=== PATIENT | male | born 1990 | race African-American/Black ===

== ENCOUNTER 2017-01-27 11:34 | Inpatient (IN) | payer OTHER ==
[~2017-01-27] VITALS: Ht 157.5 cm; Wt 76.0 kg
[2017-01-27 13:03] LABS: MEAN CORPUSCULAR HEMOGLOBIN 32.9 pg (27.0-33.0); MEAN CORPUSCULAR HGB CONC 34.5 g/dl (32.0-36.5); MEAN CORPUSCULAR VOLUME 95.3 fl (80.0-96.0); PLATELET COUNT, AUTOMATED 314 10^3/uL (150-450); RED CELL DISTRIBUTION WIDTH 11.8 % (11.5-14.5); WHITE BLOOD COUNT 8.7 10^3/uL (4.0-10.0)
[2017-01-27 13:35] LABS: METHADONE URINE NEGATIVE (NEGATIVE)
[2017-01-27 13:51] LABS: ALBUMIN 4.2 GM/DL (3.2-5.2); ALBUMIN/GLOBULIN RATIO 1.45 (1.00-1.93); ALKALINE PHOSPHATASE 49 U/L (45-117); ALT/SGPT 30 U/L (12-78); ANION GAP 9 MEQ/L (8-16); AST/SGOT 23 U/L (7-37); BILIRUBIN,DIRECT 0.3 MG/DL (0.0-0.2); BILIRUBIN,TOTAL 1.5 MG/DL (0.2-1.0); BLOOD UREA NITROGEN 12 MG/DL (7-18); CALCIUM LEVEL 9.1 MG/DL (8.5-10.1); CARBON DIOXIDE LEVEL 27 MEQ/L (21-32); CHLORIDE LEVEL 103 MEQ/L (98-107); GLOMERULAR FILTRATION RATE > 60.0 (>60); GLUCOSE, FASTING 81 MG/DL (70-105); POTASSIUM SERUM 3.7 MEQ/L (3.5-5.1); SODIUM LEVEL 139 MEQ/L (136-145); TOTAL PROTEIN 7.1 GM/DL (6.4-8.2)
[2017-01-27] MEDS ORDERED: traZODone 50 MG TAB PO PRN (14:45)
[2017-01-27] MEDS ORDERED: MAALOX 30 ML SUSP *UDC PO PRN (14:45)
[2017-01-27] MEDS ORDERED: ACETAMINOPHEN TAB 650MG DOSE (2X325MG) PO PRN (14:45)
[2017-01-27] MEDS ORDERED: MOM 30ML SUSPENSION UDC PO PRN (14:45)
[2017-01-27 16:05] VITALS: BP 134/59
[2017-01-27] MEDS: ESCITALOPRAM OXALATE 10 MG TAB (LEXAPRO) PO SCH (17:58)
[2017-01-28 06:45] VITALS: BP 140/75
--- NOTE | 2017-01-28 09:00 | HPEPDOC ---
[facility] Medical History & Physical Date of Admission Jan 27, 2017 History and Physical PCP: [facility] ATTENDING: Dr. Sahil Gold HPI: 26yoM admitted to [facility] for Depressive disorder, being medically examined today. No acute medical complaints today. Denies any fevers, chills, weakness, fatigue, VARMA, CP, SOB, cough, palpitations, abdominal pain, N/V/D or changes in bowel or bladder habits. PMHx: Anxiety Depression Self-mutilation Strube SI PSHX: Denies SOCHX: Resides in: [place], from [place]. Marital Status: Single Kids: None Employment: Active duty Tobacco use: Denies ETOH: Denies Illicit Drugs: History of marijuana, last 7 years ago IV Drug Use: Denies Tattoos done unprofessionally: Denies FAMHX: Mother: Alive, hypertension Father: Unknown Siblings: Alive, well Children: None Unexpected deaths due to medical reasons: None. ROS: As noted in HPI, otherwise 11pt ROS of systems reviewed and unremarkable. PE: GEN: 26yoM, appears stated age. Well-nourished, well developed. No acute distress. Alert and oriented x 3. Pleasant, interactive. HEENT: Normocephalic, atraumatic. Pupils are equal, round, and reactive to light. Extraocular movements are intact. No nystagmus appreciated. Sclera are nonicteric. Conjunctiva without injection. Nose midline. Nasal turbinates without bogginess. EACs both patent BL. TMs both visualized and sauer with good cone of light, no bulging or erythema. No facial asymmetry. Moist mucous membranes. Dentition fair. Pharynx pink and moist, no cobblestoning. Neck supple , trachea midline. No lymphadenopathy or thyromegaly appreciated. CHEST: Regular rate and rhythm, +S1, +S2 LUNGS: Clear to auscultation bilaterally. No wheezes, rales, or rhonchi. Breathing appears symmetric and easy. Patient is speaking in full sentences. No accessory muscle use. ABD: Round, soft, non-tender, non-distended. +Bowel sounds throughout. No rebound or guarding. No costovertebral angle tenderness. EXT: Pulses 2+ bilaterally dorsalis pedis and radial. No lower extremity edema appreciated. SKIN: [place], dry, warm. Capillary refill <2sec. No rashes. NEURO: Alert and oriented x 3. Cranial nerves III-XII are intact. No focal deficits appreciated. EKG: pending. A&P: 26yoM admitted to [facility] for Depressive disorder 1. Psych. Plan per Psychiatry. Obtain baseline EKG to assure the safety of psychiatric medications as they can prolong the QT interval. 2. Follow up with PCP on discharge. 3. Staff member Ed present throughout exam. Vital Signs Vital Signs Date Time Temp Pulse Resp B/P (MAP) Pulse Ox O2 Delivery O2 Flow Rate FiO2 01/28/17 06:45 99.0 67 14 140/75 (96) Room Air 01/27/17 16:05 99 Laboratory Data Labs 24H Laboratory Tests 2 01/27/17 12:45: Nucleated Red Blood Cells % (auto) 0.0, Anion Gap 9, Glomerular Filtration Rate > 60.0, Calcium Level 9.1, Aspartate Amino Transf (AST/SGOT) 23, Alanine Aminotransferase (ALT/SGPT) 30, Alkaline Phosphatase 49, Total Bilirubin 1.5H, Direct Bilirubin 0.3H, Total Protein 7.1, Albumin 4.2, Albumin/Globulin Ratio 1.45, Thyroid Stimulating Hormone (TSH) 0.984, Salicylates Level < 1.7L, Urine Amphetamines Screen NEGATIVE, Urine Benzodiazepines Screen NEGATIVE, Urine Opiates Screen NEGATIVE, Urine Methadone Screen NEGATIVE, Acetaminophen Level < 2.0L, Urine Barbiturates Screen NEGATIVE, Urine Phencyclidine Screen NEGATIVE, Urine Cocaine Metabolite Screen NEGATIVE, Urine Cannabinoids Screen NEGATIVE, Ethyl Alcohol Level < 0.003 CBC/BMP Laboratory Tests 01/27/17 12:45 Red Blood Count 4.47, Mean Corpuscular Volume 95.3, Mean Corpuscular Hemoglobin 32.9, Mean Corpuscular Hemoglobin Concent 34.5, Red Cell Distribution Width 11.8 Home Medications No Active Prescriptions or Reported Meds Allergies Coded Allergies: No Known Allergies (Unverified , 01/27/17) Di Obando Jan 28, 2017 09:00
[2017-01-28] MEDS: ESCITALOPRAM OXALATE 10 MG TAB (LEXAPRO) PO SCH (09:31)
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
[2017-01-28] MEDS: VENLAFAXINE **XR** 37.5 MG CAPSULE PO SCH (11:40)
--- NOTE | 2017-01-28 14:04 | ECGEPIP ---
Stationary ECG Study [facility] Test Date: 2017-01-28 Pat Name: MADELEINE ZAMORA Department: Room: [place] [address] Gender: M Stereotyper: MAGGIE : 1990 Requested By: Di Obando Order Number: [id number] Reading MD: Jovana Lee Measurements Intervals [place] Rate: 57 P: 59 [place]: 167 QRS: 85 QRSD: 88 T: 32 QT: 392 QTc: 384 Interpretive Statements SINUS BRADYCARDIA WITH SINUS ARRHYTHMIA ST ELEVATION, PROBABLY EARLY REPOLARIZATION CLINICAL GRICELDA NONSPECIFIC ST & T-WAVE ABNORMALITY Electronically Signed On 01-28-2017 14:03:52 EST by Jovana Lee
[2017-01-28 18:00] VITALS: BP 129/70
[2017-01-28] MEDS: traZODone 100 MG TAB PO SCH (22:06)
[2017-01-29 06:42] VITALS: BP 137/66
[2017-01-29] MEDS: VENLAFAXINE **XR** 37.5 MG CAPSULE PO SCH ×2 (09:00→12:02)
[2017-01-29] MEDS: ESCITALOPRAM OXALATE 10 MG TAB (LEXAPRO) PO SCH (09:16)
--- NOTE | 2017-01-29 15:13 | MHIPN ---
DATE: 01/29/2017 HISTORY: A 26-year-old male, active-duty soldier, admitted for depression and suicidal ideation. Patient was searching for places in his room to hang himself. MEDICATIONS: - Effexor XR 37.5 mg by mouth every morning - Lexapro 20 mg by mouth every morning - trazodone 100 mg by mouth at bedtime SUBJECTIVE: "I'm afraid of the side effects of the medication." OBJECTIVE: Patient refused to take the Effexor this morning. I discussed this issue with the patient and told him that he was taking the Lexapro with minimal results, and that I was trying to get this new medication to build up to see if it was effective. Patient agreed to take it. There is no evidence of psychotic symptoms. No auditory or visual hallucinations or delusions. MENTAL STATUS EXAMINATION: Patient dressed in [facility]. Patient is cooperative. Has fair eye contact. His speech is slow and monotone. Mood is depressed and anxious. Affect is restricted. No delusions. No hallucinations. Memory is fair. Patient is fully oriented. The patient is able to contract for safety during the interview. Insight and judgment are limited. ASSESSMENT: 1. Depression. 2. Suicidal ideation. PLAN: 1. Continue with Effexor XR 37.5 mg by mouth every morning. 2. Continue Lexapro 20 mg by mouth every morning. Will taper and discontinue this medication if Effexor is effective. 3. Continue trazodone 100 mg by mouth at bedtime.
[2017-01-29 18:00] VITALS: BP 130/81
[2017-01-29] MEDS: traZODone 100 MG TAB PO SCH (21:40)
[2017-01-30 06:45] VITALS: BP 143/69
[2017-01-30] MEDS: ESCITALOPRAM OXALATE 10 MG TAB (LEXAPRO) PO SCH (09:53)
--- NOTE | 2017-01-30 15:59 | MHIPN ---
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 The patient was searching for places in his room to hang himself. MEDICATIONS: - Effexor XR 37.5 mg by mouth in the morning - Lexapro 20 mg by mouth in the morning - trazodone 100 mg by mouth at night SUBJECTIVE: "I could sleep a little better." OBJECTIVE: The patient continues depressed with psychomotor retardation, sad, restricted facial expressions. Interacts very little with other patients and staff. Has tendency to isolate. There is no evidence of psychotic symptoms. No auditory or visual hallucinations or delusions. The patient is able to contract for safety while in the hospital. MENTAL STATUS EXAMINATION: The patient is dressed in [facility]. The patient is cooperative. Has fair eye contact. Speech is slow and monotone. Mood is depressed and anxious. Affect is restricted. No delusions or hallucinations. Memory, attention and concentration are fair. The patient is able to contract for safety while in the hospital. Insight and judgment are limited. ASSESSMENT: 1. Depression. 2. Suicidal ideation. PLAN: 1. Increase Effexor XR to 75 mg by mouth in the morning. 2. Continue Lexapro 20 mg by mouth in the morning. We will taper this medication and discontinue it as Effexor is increased. 3. Increase trazodone to 150mg by mouth in the morning.
[2017-01-30] MEDS: traZODone 50 MG TAB PO SCH (21:00)
[2017-01-30 22:08] VITALS: BP 128/72
[2017-01-31 06:18] VITALS: BP 128/79
[2017-01-31] MEDS: VENLAFAXINE **XR** 75MG CAPSULE PO SCH (08:46)
[2017-01-31] MEDS: ESCITALOPRAM OXALATE 10 MG TAB (LEXAPRO) PO SCH (08:46)
--- NOTE | 2017-01-31 15:34 | MHIPN ---
DATE: 01/31/2017 HISTORY: A 26-year-old male, active-duty soldier, admitted for depression and suicidal ideation. Patient was searching for places in his room to hang himself. MEDICATIONS: 1. Effexor XR 75 mg by mouth every morning. 2. Lexapro 20 mg by mouth every morning. 3. Trazodone 100 mg by mouth at bedtime. SUBJECTIVE: "I did not take the medication for sleep last night." OBJECTIVE: Patient states that could not sleep last night. Was waking up constantly; however, he said that he refused the trazodone at bedtime. I discussed the treatment with the patient and the importance of being compliant with the medication. No evidence of side effects. Patient continues depressed with sad, restricted facial expression and psychomotor retardation. No evidence of side effect from the medication. No delusions. No hallucinations. MENTAL STATUS EXAMINATION: Patient dressed in [facility]. Patient is cooperative. Has fair eye contact. Speech is slow and monotone. Mood is depressed and anxious. Affect is restricted, sad. No auditory or visual hallucinations. No paranoid delusions. Memory, attention, and concentration are fair. Patient has limited insight. Judgment is fair. ASSESSMENT: 1. Depression. 2. Suicidal ideation. PLAN: 1. Continue Effexor XR 75 mg by mouth every morning. 2. Continue Lexapro 20 mg by mouth every morning. Will taper this medication, as Effexor will be at therapeutic range. 3. Continue trazodone 150 mg by mouth at bedtime .
[2017-01-31 18:00] VITALS: BP 140/70
[2017-01-31] MEDS: traZODone 50 MG TAB PO SCH (21:10)
[2017-02-01 06:52] VITALS: BP 123/59
[2017-02-01] MEDS: VENLAFAXINE **XR** 75MG CAPSULE PO SCH (08:37)
[2017-02-01] MEDS: ESCITALOPRAM OXALATE 10 MG TAB (LEXAPRO) PO SCH (08:37)
[2017-02-01 18:00] VITALS: BP 126/62
[2017-02-01] MEDS: traZODone 50 MG TAB PO SCH (21:00)
[2017-02-02 06:39] VITALS: BP 141/77
[2017-02-02] MEDS: VENLAFAXINE **XR** 75MG CAPSULE PO SCH (08:27)
[2017-02-02] MEDS: ESCITALOPRAM OXALATE 10 MG TAB (LEXAPRO) PO SCH (08:27)
[2017-02-02 18:00] VITALS: BP 134/65
[2017-02-02] MEDS: traZODone 50 MG TAB PO SCH (20:50)
[2017-02-03 07:00] VITALS: BP 123/77
[2017-02-03] MEDS: VENLAFAXINE **XR** 75MG CAPSULE PO SCH (08:36)
[2017-02-03] MEDS: ESCITALOPRAM OXALATE 10 MG TAB (LEXAPRO) PO SCH (08:36)
[2017-02-03 18:00] VITALS: BP 142/69
--- NOTE | 2017-02-03 18:27 | MHIPN ---
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 The patient was searching for places in his room to hang himself. MEDICATIONS: - Effexor XR 75 mg by mouth every morning - Lexapro 20 mg by mouth every morning - trazodone 100 mg by mouth nightly SUBJECTIVE: "I could not sleep well last night." OBJECTIVE: Even though he reports poor sleep, he says he goes to sleep at 9 p.m. and wakes up at 5 a.m. He says that he wakes up several times during the night. The patient is denying side effects from the medication. The patient is improving slowly. He continues to be depressed and have mood swings. He is less anxious. He is interacting minimally with other patients and staff and have tendency to stay by himself in his room. MENTAL STATUS EXAMINATION: The patient dressed in [facility]. The patient is cooperative during examination. Has poor eye contact. Mood is depressed. Affect is restricted. No delusions. No hallucinations. Memory, attention, and concentration are fair. The patient is able to contract for safety during the interview. Insight and judgment is limited. ASSESSMENT: 1. Depression. 2. Suicidal ideation. PLAN: 1. Continue Effexor XR 75 mg by mouth every morning. 2. Continue Lexapro 20 mg by mouth every morning. 3. Continue trazodone 100 mg by mouth nightly.
[2017-02-03] MEDS: traZODone 50 MG TAB PO SCH (22:07)
[2017-02-04 07:00] VITALS: BP 121/63
[2017-02-04] MEDS: VENLAFAXINE **XR** 75MG CAPSULE PO SCH (09:29)
[2017-02-04] MEDS: ESCITALOPRAM OXALATE 10 MG TAB (LEXAPRO) PO SCH (09:29)
--- NOTE | 2017-02-04 16:18 | MHIPN ---
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 The patient was searching for places in his room to hang himself. MEDICATIONS: - Effexor XR 75 mg by mouth every morning - Lexapro 20 mg by mouth every morning - trazodone 150 mg by mouth at bedtime SUBJECTIVE: "I'm feeling a little better." OBJECTIVE: The patient is improving slowly. The patient is less depressed but continue with isolation, psychomotor retardation and sad, restricted facial expression. No evidence of psychotic symptoms. No auditory or visual hallucinations or delusions. The patient denies side effect from the medication. MENTAL STATUS EXAMINATION: The patient is dressed in [facility]. The patient is cooperative. He has fair eye contact. Mood is depressed. Affect is restricted. No delusions. No hallucinations. Memory, attention, and concentration are fair. The patient is able to contract for safety during the interview. Insight and judgment is limited. ASSESSMENT: 1. Depression. 2. Suicidal ideation. PLAN: 1. Continue Effexor XR 75 mg by mouth every morning. 2. Decrease Lexapro to 10 mg by mouth every morning times four days and then discontinue. 3. Continue trazodone 150 mg by mouth at bedtime.
[2017-02-04 18:00] VITALS: BP 132/71
[2017-02-04] MEDS: traZODone 50 MG TAB PO SCH (21:39)
[2017-02-05 06:41] VITALS: BP 138/76
[2017-02-05] MEDS: VENLAFAXINE **XR** 75MG CAPSULE PO SCH (08:42)
[2017-02-05] MEDS: ESCITALOPRAM OXALATE 10 MG TAB (LEXAPRO) PO SCH (08:42)
--- NOTE | 2017-02-05 15:19 | MHIPN ---
DATE: 02/05/2017 HISTORY: A 26-year-old male, active-duty soldier, admitted for depression and suicidal ideation. The patient was searching for places in his room to hang himself. MEDICATIONS: - Effexor XR 75 mg by mouth every morning - Lexapro 10 mg taper - trazodone 150 mg by mouth at bedtime SUBJECTIVE: "I still have mood swings." OBJECTIVE: The patient continues improving slowly. The patient is less depressed but has mood fluctuations throughout the day. The patient is more visible in the unit and at times engages with some patients but has tendency to stay by himself. No psychotic symptoms. No auditory or visual hallucinations. No delusions. The patient is denying side effect from the medication. The patient is sleeping better with the help of trazodone 150 mg at bedtime. MENTAL STATUS EXAMINATION: The patient is dressed in [facility]. The patient is cooperative. He has fair eye contact. Mood is depressed. Affect is restricted. No delusions. No hallucinations. Memory, attention, and concentration are fair. The patient is able to contract for safety while in the hospital. Insight and judgment is limited. ASSESSMENT: 1. Depression. 2. Suicidal ideation. PLAN: 1. Continue Effexor XR 75 mg by mouth every morning. 2. Lexapro 10 mg by mouth twice a day times three days and then discontinue. 3. Continue trazodone 150 mg by mouth at bedtime.
[2017-02-05 18:00] VITALS: BP 138/62
[2017-02-05] MEDS: traZODone 50 MG TAB PO SCH (22:37)
[2017-02-06 07:32] VITALS: BP 119/66
[2017-02-06] MEDS: VENLAFAXINE **XR** 75MG CAPSULE PO SCH (08:38)
[2017-02-06] MEDS: ESCITALOPRAM OXALATE 10 MG TAB (LEXAPRO) PO SCH (08:38)
[2017-02-06] MEDS: GENTAMICIN 0.3% OPHTH SOL 5 ML BTL OU SCH ×3 (09:00→21:00)
--- NOTE | 2017-02-06 16:09 | MHIPN ---
DATE: 02/06/2017 HISTORY: A 26-year-old male, active-duty soldier, admitted for depression and suicidal ideation. Patient was searching for places in his room to hang himself. MEDICATIONS: - Effexor XR 75 mg by mouth every morning - Lexapro 10 mg by mouth taper - trazodone 150 mg by mouth at bedtime SUBJECTIVE: "I'm feeling better today." OBJECTIVE: Patient is improving slowly. Patient is socializing and interacting better with other patients and staff. Psychomotor retardation has improved. Patient does not have psychotic symptoms. No auditory or visual hallucinations or delusions. Patient is tolerating well the medication. MENTAL STATUS EXAMINATION: Patient dressed in [facility]. Patient is cooperative. Has fair eye contact. Mood is depressed. Affect is restricted. No delusions. No hallucinations. Memory, attention, and concentration are fair. Patient is able to contract for safety while in the hospital. Insight and judgment are limited. ASSESSMENT: 1. Depression. 2. Suicidal ideation. PLAN: 1. Continue Effexor XR 75 mg by mouth every morning. 2. Discontinue Lexapro. 3. Continue trazodone 150 mg by mouth at bedtime.
[2017-02-06 18:00] VITALS: BP 147/67
[2017-02-06] MEDS: traZODone 50 MG TAB PO SCH (21:41)
[2017-02-07 06:39] VITALS: BP 125/64
[2017-02-07] MEDS: VENLAFAXINE **XR** 75MG CAPSULE PO SCH (08:53)
[2017-02-07] MEDS: GENTAMICIN 0.3% OPHTH SOL 5 ML BTL OU SCH ×3 (09:00→21:00)
[2017-02-07] MEDS ORDERED: diphenhydrAMINE 50 MG CAP PO PRN (15:30)
[2017-02-07 18:00] VITALS: BP 145/78
--- NOTE | 2017-02-07 18:00 | MHIPN ---
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 The patient was searching for places in his room to hang himself. MEDICATIONS: - Effexor XR 75 mg by mouth every morning - trazodone 150 mg by mouth at bedtime SUBJECTIVE: "I don't feel good today." OBJECTIVE: The patient has been improving slowly throughout the hospitalization. The patient is interacting and socializing better. Psychomotor retardation has significantly improved. There is no evidence of psychotic symptoms. No auditory or visual hallucinations or delusions. The patient denies side effect from the medication. MENTAL STATUS EXAMINATION: Patient dressed in [facility]. The patient is cooperative, has fair eye contact. Mood is depressed but improved. Affect is restricted. No delusions, no hallucinations. Memory, attention and concentration are fair. The patient is able to contract for safety while in the hospital. Insight and judgment are limited. ASSESSMENT: 1. Depression. 2. Suicidal ideation. PLAN: 1. Continue Effexor XR 75 mg by mouth every morning. 2. Continue trazodone 150 mg by mouth at bedtime.
[2017-02-07] MEDS: LORazepam 0.5 MG TAB PO PRN (18:46)
[2017-02-07] MEDS: traZODone 50 MG TAB PO SCH (21:00)
[2017-02-08] MEDS: VENLAFAXINE **XR** 75MG CAPSULE PO SCH (08:02)
[2017-02-08] MEDS: LORazepam 0.5 MG TAB PO PRN (08:02)
[2017-02-08] MEDS: GENTAMICIN 0.3% OPHTH SOL 5 ML BTL OU SCH ×3 (08:03→21:00)
[2017-02-08 18:00] VITALS: BP 133/65
[2017-02-08] MEDS: traZODone 50 MG TAB PO SCH (21:00)
[2017-02-09 06:51] VITALS: BP 136/87
[2017-02-09 06:53] VITALS: BP 136/87
[2017-02-09] MEDS: VENLAFAXINE **XR** 75MG CAPSULE PO SCH ×3 (09:00→09:54)
[2017-02-09] MEDS: GENTAMICIN 0.3% OPHTH SOL 5 ML BTL OU SCH ×3 (09:00→21:00)
[2017-02-09] MEDS: LORazepam 0.5 MG TAB PO PRN ×2 (09:47→16:52)
[2017-02-09 18:00] VITALS: BP 143/77
[2017-02-09] MEDS: traZODone 50 MG TAB PO SCH (21:46)
[2017-02-10 06:00] VITALS: BP 123/68
[2017-02-10] MEDS: GENTAMICIN 0.3% OPHTH SOL 5 ML BTL OU SCH ×3 (08:09→21:00)
[2017-02-10] MEDS: VENLAFAXINE **XR** 75MG CAPSULE PO SCH (08:12)
[2017-02-10] MEDS: LORazepam 0.5 MG TAB PO PRN ×2 (08:12→16:38)
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
[2017-02-10 18:00] VITALS: BP 134/71
[2017-02-10] MEDS: traZODone 50 MG TAB PO SCH (22:30)
[2017-02-11 07:01] VITALS: BP 137/66
[2017-02-11] MEDS: VENLAFAXINE **XR** 75MG CAPSULE PO SCH (08:18)
[2017-02-11] MEDS: LORazepam 0.5 MG TAB PO PRN ×2 (08:18→18:12)
[2017-02-11] MEDS: GENTAMICIN 0.3% OPHTH SOL 5 ML BTL OU SCH ×3 (08:18→21:00)
--- NOTE | 2017-02-11 13:26 | MHIPN ---
DATE: 02/11/2017 VITAL SIGNS: Temperature 98.7, pulse 67, respirations 16, blood pressure 137/66. MEDICATION: - Effexor XR 150 mg every morning - Ativan 0.5 mg every six hours as needed - Benadryl 50 mg nightly as needed - trazodone 150 mg nightly HISTORY OF PRESENT ILLNESS: Patient finds the medication helpful. He likes the Effexor. His dose was just increased. He feels calmer on it. His anxiety is less prominent. His mood is much improved. He has felt depressed for all of his adult life. He is surprised now to be having episodes of feeling happy and euthymic. He feels positive about the future. His appetite is good. Concentration is fine. He slept much better last night. He slept about 8 hours. He has been in touch with his mother on the telephone. She is still very supportive. Panic symptoms are better with the Ativan. Patient is informed that his Ativan will need to be weaned off prior to discharge. He feels comfortable with this. Patient reports a history of social phobic symptoms as well. He is pleased to report he feels more sociable here on the unit and is interacting with his peers on the unit. MENTAL STATUS EXAMINATION: Patient is alert, oriented and cooperative. Affect appears brighter. Mood is improved. Patient less depressed. He has moments of euthymia. Anxiety is less prominent. No signs of psychosis. Not hearing voices. No paranoia. Insight and judgment seem improved. No signs of dangerousness. DIAGNOSES: Major depression, recurrent, mild severity. Panic/anxiety disorder. Social anxiety disorder. PLAN: Continue psychotropics. Patient to use Ativan on as needed basis with plan to wean off. MTDD
[2017-02-11 18:21] VITALS: BP 155/82
[2017-02-11] MEDS: traZODone 50 MG TAB PO SCH ×2 (21:00→23:20)
[2017-02-12 06:44] VITALS: BP 115/56
[2017-02-12] MEDS: VENLAFAXINE **XR** 75MG CAPSULE PO SCH (08:31)
[2017-02-12] MEDS: GABAPENTIN 100 MG CAP PO SCH ×3 (13:00→21:00)
--- NOTE | 2017-02-12 15:28 | MHIPN ---
DATE: 02/12/2017 VITAL SIGNS: Temperature 98.6, pulse 68, respirations 18, blood pressure 115/56. MEDICATION: - Effexor XR 150 mg every morning - Ativan 0.5 mg every six hours as needed - Benadryl 50 mg nightly as needed - trazodone 150 mg nightly HISTORY OF PRESENT ILLNESS: The patient is now reporting depressed. He is not sure exactly why. He was upset that a girlfriend did not visit last night. He feels like a failure. He feels like he should not be alive. Self esteem is poor. He has suicidal thoughts of harming himself tonight but then had changed his mind. The patient feels lonely. He does not like the holidays and never has. He has no other social supports aside from his mother and two brothers. His Ativan has been reduced over concerns of availability upon discharge. Subsequently, he feels more anxious. The patient has had some sexually inappropriate behavior and comments to patients and staff. The patient is confronted regarding this and promises to avoid any further such activity and/or comments. The patient has no support systems or networks ([place]). Given the fact that the patient still feels depressed with active suicidal ideation and lack of appropriate supports at [place], the patient's hospitalization will be maintained for the time being. MENTAL STATUS EXAMINATION: Patient is alert, oriented and cooperative. Affect is subdued, sad, and depressed. The patient reports suicidal ideation. He is anxious with some phobic behavior. No signs of psychosis. Insight and judgment appear impaired. He appears a potential danger to himself, in my opinion. DIAGNOSES: Major depression, recurrent, moderate severity. Panic/anxiety disorder. Social anxiety disorder. PLAN: Start gabapentin 100 mg four times a day to help with anxiety symptoms. Monitor the patient's mood closely. Continue Effexor, but monitor for any paradoxic worsening, which can happen with young people. The patient is firmly instructed to avoid any sexually provocative comments or actions.
[2017-02-12 18:00] VITALS: BP 124/74
[2017-02-12] MEDS: traZODone 50 MG TAB PO SCH (21:00)
[2017-02-13 06:59] VITALS: BP 146/79
[2017-02-13] MEDS: DIVALPROEX 250MG *ER* TAB PO SCH ×5 (09:00→21:40)
[2017-02-13] MEDS: VENLAFAXINE **XR** 75MG CAPSULE PO SCH (09:28)
[2017-02-13] MEDS: GABAPENTIN 100 MG CAP PO SCH (09:28)
--- NOTE | 2017-02-13 15:11 | MHIPN ---
DATE: 02/13/2017 VITAL SIGNS: Temperature 98.3, pulse 82, respirations 16, blood pressure 146./79. CURRENT MEDICATION: - gabapentin 100 mg four times a day - Effexor XR 150 mg every morning - Ativan 0.5 mg every six hours as needed - trazodone 150 mg nightly (patient refusing) HISTORY OF PRESENT ILLNESS: The patient's mood was quite depressed yesterday. Today, he reports his mood as being improved. He is out of his room more. He is verbalizing more his issues with his roommate and with staff members. Patient is reporting some possible manic symptoms. Patient states that he is "hyped up." He does report to have a history of hypomania, if not manic symptoms in the past. He would stay awake for days at a time. For months, he would only get 3 or 4 hours sleep. 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 There is a family history of depression. There is no history of bipolar disorder that he is aware of, however. We discussed a mood stabilizer, which he feels comfortable with. Patient had been prescribed gabapentin yesterday, but this will be switched to Depakote. MENTAL STATUS EXAMINATION: Patient is alert, oriented and cooperative. Affect is improved today compared to yesterday. He is much more verbal. Speech is somewhat pressured. Not voicing any suicidal thoughts but reports mild depression. Insight and judgment are fair. No signs of organic deficits. DIAGNOSES: Bipolar disorder, mixed state. Panic/anxiety disorder. Social anxiety disorder. PLAN: Discontinue gabapentin. Switched to Depakote 250 mg four times a day as a mood stabilizer and anti-anxiety agent. No change in Effexor. May be considered for long term care administrator care at [facility] out of [place]. [facility]
[2017-02-13 18:00] VITALS: BP 123/65
[2017-02-13] MEDS: traZODone 50 MG TAB PO SCH (21:40)
[2017-02-14 06:52] VITALS: BP 119/61
[2017-02-14] MEDS: VENLAFAXINE **XR** 75MG CAPSULE PO SCH (08:56)
[2017-02-14] MEDS: DIVALPROEX 250MG *ER* TAB PO SCH ×4 (08:56→23:30)
[2017-02-14 18:00] VITALS: BP 129/68
--- NOTE | 2017-02-14 19:04 | MHIPN ---
DATE: 02/14/2017 VITAL SIGNS: Temperature 98.9, pulse 58, respirations 18, blood pressure 119/61. CURRENT MEDICATION: - Depakote 250 mg four times a day - Effexor XR 150 mg every morning - Ativan discontinued - Benadryl 50 mg at night as needed PSYCHIATRIC HISTORY: The patient finds the Depakote helpful. It does make him a bit sleepy, however. He fell asleep in the chain of command meeting, for example. However, he feels less anxious on it. It is a good alternative to the Ativan, which was prescribed earlier in the admission. He states that he is more verbal and talks a lot to his roommate and other peers on the unit. His mood feels more stable. His mood yesterday was quite depressed. Today, he feels more positive. Depression is in the mild to moderate range. Racing thoughts are less prominent. He feels comfortable with being transferred to the [place] facility. He still reports feeling "hyped up" from the antidepressant, especially later on in the evening. However, he then admits that this is a frequent experience without medications. MENTAL STATUS EXAMINATION: Patient is alert, oriented and cooperative. Affect is improved. Racing thoughts much improved. Pressured speech has improved to the point where I can understand his speech without multiple interruptions with clarification. The patient reports mild depression but he is not suicidal. Insight and judgment seem fair. Grooming and hygiene are good. DIAGNOSES: Bipolar disorder, mixed state. Panic/anxiety disorder. Social anxiety disorder. PLAN: Ativan discontinued.
[2017-02-14] MEDS: traZODone 50 MG TAB PO SCH (21:00)
[2017-02-15 06:42] VITALS: BP 144/73
[2017-02-15] MEDS: VENLAFAXINE **XR** 75MG CAPSULE PO SCH (08:46)
[2017-02-15] MEDS: DIVALPROEX 250MG *ER* TAB PO SCH ×4 (08:47→21:49)
[2017-02-15 18:40] VITALS: BP 131/72
[2017-02-15] MEDS: traZODone 50 MG TAB PO SCH (21:00)
[2017-02-16 06:42] VITALS: BP 149/82
[2017-02-16] MEDS: DIVALPROEX 250MG *ER* TAB PO SCH ×4 (09:23→21:00)
[2017-02-16] MEDS: VENLAFAXINE **XR** 75MG CAPSULE PO SCH (09:23)
[2017-02-16 18:14] VITALS: BP 135/74
[2017-02-16] MEDS: traZODone 50 MG TAB PO SCH (21:00)
[2017-02-17 06:44] VITALS: BP 135/79
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
== END 2017-02-17 07:35 | DRG 885 ==
LOC: M ED 11:34 → M ED INP 14:39 → M PSY 16:04
PROVIDERS: ADMIT Psychiatry & Neurology Psychiatry; ATTEND Psychiatry & Neurology Psychiatry
DX: F31.60 Bipolar disorder, current episode mixed, unspecified (principal); R45.851 Suicidal ideations; F41.0 Panic disorder [episodic paroxysmal anxiety]

== ENCOUNTER 2017-03-31 11:12 | Inpatient (IN) | payer OTHER ==
[2017-03-31 12:01] LABS: HEMATOCRIT 45.4 % (42.0-52.0); HEMOGLOBIN 15.3 g/dl (14.0-18.0); MEAN CORPUSCULAR HEMOGLOBIN 32.6 pg (27.0-33.0); MEAN CORPUSCULAR HGB CONC 33.7 g/dl (32.0-36.5); MEAN CORPUSCULAR VOLUME 96.8 fl (80.0-96.0); PLATELET COUNT, AUTOMATED 252 10^3/uL (150-450); RED BLOOD COUNT 4.69 10^6/uL (4.30-6.10); RED CELL DISTRIBUTION WIDTH 11.8 % (11.5-14.5); WHITE BLOOD COUNT 6.4 10^3/uL (4.0-10.0)
[2017-03-31 12:27] LABS: VALPROIC ACID (DEPAKOTE) 45.2 UG/ML (50.0-100.0)
[2017-03-31 12:36] LABS: ALBUMIN/GLOBULIN RATIO 1.08 (1.00-1.93); ALKALINE PHOSPHATASE 49 U/L (45-117); ALT/SGPT 22 U/L (12-78); ANION GAP 8 MEQ/L (8-16); AST/SGOT 17 U/L (7-37); BILIRUBIN,DIRECT 0.1 MG/DL (0.0-0.2); BILIRUBIN,TOTAL 0.5 MG/DL (0.2-1.0); BLOOD UREA NITROGEN 18 MG/DL (7-18); CALCIUM LEVEL 9.1 MG/DL (8.5-10.1); CARBON DIOXIDE LEVEL 27 MEQ/L (21-32); CHLORIDE LEVEL 106 MEQ/L (98-107); CREATININE FOR GFR 1.08 MG/DL (0.70-1.30); GLOMERULAR FILTRATION RATE > 60.0 (>60); GLUCOSE, FASTING 76 MG/DL (70-100); POTASSIUM SERUM 4.3 MEQ/L (3.5-5.1); SALICYLATE LEVEL < 1.7 MG/DL (5.0-30.0); SODIUM LEVEL 141 MEQ/L (136-145); THYROID STIMULATING HORMONE 0.999 uIU/ML (0.358-3.740); TOTAL PROTEIN 7.7 GM/DL (6.4-8.2)
[2017-03-31 12:44] LABS: ACETAMINOPHEN LEVEL < 2.0 UG/ML (10.0-30.0); ETHYL ALCOHOL (ETHANOL) < 0.003 % (0.000-0.010)
[2017-03-31 13:03] LABS: AMPHETAMINES LEVEL URINE NEGATIVE (NEGATIVE); BARBITURATES URINE NEGATIVE (NEGATIVE); BENZODIAZEPINES URINE NEGATIVE (NEGATIVE); CANNABINOIDS URINE NEGATIVE (NEGATIVE); COCAINE METABOLITE URINE NEGATIVE (NEGATIVE); METHADONE URINE NEGATIVE (NEGATIVE); OPIATES URINE NEGATIVE (NEGATIVE); PHENCYCLIDINE URINE NEGATIVE (NEGATIVE)
[2017-03-31] MEDS ORDERED: MAALOX 30 ML SUSP *UDC PO (15:00)
[2017-03-31] MEDS ORDERED: MOM 30ML SUSPENSION UDC PO (15:00)
[2017-03-31] MEDS ORDERED: ACETAMINOPHEN TAB 650MG DOSE (2X325MG) PO (15:00)
[2017-03-31] MEDS ORDERED: QUEtiapine FUMARATE 200 MG TAB PO (21:00)
[2017-03-31] MEDS: DIVALPROEX 500 MG TAB PO (21:02)
[2017-03-31] MEDS: QUEtiapine FUMARATE 200 MG TAB PO (21:02)
[2017-03-31] MEDS: traZODone 50 MG TAB PO (22:02)
[2017-04-01] MEDS ORDERED: VENLAFAXINE **XR** 75MG CAPSULE PO (09:00)
[2017-04-01] MEDS: DIVALPROEX 500 MG TAB PO ×2 (10:38→20:41)
[2017-04-01] MEDS ORDERED: traZODone 100 MG TAB PO ×2 (12:00→21:00)
[2017-04-01] MEDS: busPIRone 5 MG TAB PO ×2 (16:12→20:41)
[2017-04-01] MEDS: QUEtiapine FUMARATE 200 MG TAB PO (20:41)
[2017-04-01] MEDS ORDERED: QUEtiapine FUMARATE 200 MG TAB PO (21:00)
[2017-04-02] MEDS: busPIRone 5 MG TAB PO ×3 (08:29→21:32)
[2017-04-02] MEDS: DIVALPROEX 500 MG TAB PO ×2 (08:29→21:31)
[2017-04-02] MEDS: SERTRALINE HCL 50 MG TAB PO (12:55)
[2017-04-02] MEDS: traZODone 100 MG TAB PO (21:00)
[2017-04-02] MEDS: QUEtiapine FUMARATE 200 MG TAB PO (21:31)
[2017-04-03] MEDS: DIVALPROEX 500 MG TAB PO ×2 (08:55→20:45)
[2017-04-03] MEDS: SERTRALINE HCL 50 MG TAB PO (08:55)
[2017-04-03] MEDS: busPIRone 5 MG TAB PO ×3 (08:55→20:46)
[2017-04-03] MEDS: QUEtiapine FUMARATE 200 MG TAB PO (20:45)
[2017-04-03] MEDS: traZODone 100 MG TAB PO (21:00)
[2017-04-04] MEDS: busPIRone 5 MG TAB PO ×3 (10:06→20:24)
[2017-04-04] MEDS: SERTRALINE HCL 50 MG TAB PO (10:06)
[2017-04-04] MEDS: DIVALPROEX 500 MG TAB PO ×2 (10:06→20:24)
[2017-04-04] MEDS: traZODone 100 MG TAB PO (20:24)
[2017-04-04] MEDS: QUEtiapine FUMARATE 200 MG TAB PO (22:16)
[2017-04-05] MEDS: DIVALPROEX 500 MG TAB PO ×2 (09:20→19:59)
[2017-04-05] MEDS: SERTRALINE HCL 50 MG TAB PO (09:20)
[2017-04-05] MEDS: busPIRone 5 MG TAB PO ×3 (09:21→19:59)
[2017-04-05] MEDS: QUEtiapine FUMARATE 200 MG TAB PO (19:59)
[2017-04-05] MEDS: traZODone 100 MG TAB PO (21:00)
[2017-04-06] MEDS: busPIRone 5 MG TAB PO ×3 (08:17→20:09)
[2017-04-06] MEDS: SERTRALINE HCL 50 MG TAB PO (08:18)
[2017-04-06] MEDS: DIVALPROEX 500 MG TAB PO ×2 (08:18→20:06)
[2017-04-06] MEDS: QUEtiapine FUMARATE 200 MG TAB PO (20:07)
[2017-04-06] MEDS: traZODone 100 MG TAB PO ×2 (21:00→23:12)
[2017-04-07] MEDS: busPIRone 5 MG TAB PO (08:30)
[2017-04-07] MEDS: DIVALPROEX 500 MG TAB PO (08:31)
[2017-04-07] MEDS: SERTRALINE HCL 50 MG TAB PO (08:31)
== END 2017-04-07 12:15 | disposition home or self-care (01) | DRG 885 ==
LOC: M ED 11:12 → M ED INP 14:57 → M PSY 16:37
DX: F25.9 Schizoaffective disorder, unspecified (principal); R45.851 Suicidal ideations; F32.9 Major depressive disorder, single episode, unspecified; F31.5 Bipolar disorder, current episode depressed, severe, with psychotic features; Z79.899 Other long term (current) drug therapy